=== PATIENT | female | born 1970 | race Caucasian/White ===

== ENCOUNTER 2022-07-15 10:48 | Emergency (ER) | payer OTHER, SELFPAY ==
--- NOTE | ~2022-07-15 | XR_ITS ---
EXAMINATION: XR chest 2V DATE: 07/15/2022 11:25 INDICATION: Cough TECHNIQUE: PA and lateral views of the chest are obtained. COMPARISON: None available FINDINGS: There are nodular opacities of the right lung. There are minimal airspace opacities of the right lung base. No pleural effusion or pneumothorax. The cardiomediastinal silhouette is normal. The re is moderate thoracic spondylosis. IMPRESSION: 1. Nodular opacities of the right lung which appeared reflect healed rib fractures. 2. Minimal right basilar airspace opacity, consistent with atelectasis versus pneumonia. Reviewed, dictated and finalized at location A. IMPRESSION: 1. Nodular opacities of the right lung which appeared reflect healed rib fractu res. 2. Minimal right basilar airspace opacity, consistent with atelectasis versus p neumonia.
[2022-07-15 10:56] VITALS: BP 130/76; PULSE 65; RESP 16; TEMP 36.3; O2SAT 100
--- NOTE | 2022-07-15 11:04 | ED.URI ---
HPI - URI/Sore Throat General Chief Complaint: Upper Respiratory Infection Stated Complaint: heavyness in chest, cough Time Seen by Provider: 07/15/22 11:08 Source: patient and RN notes reviewed Mode of arrival: ambulatory Limitations: no limitations History of Present Illness HPI Narrative: 52-year-old female with history of diabetes presents with concern for 8-day history of upper respiratory infection symptoms. Reports over the last 2 days she has began having worsening cough, chest congestion and heaviness. She reports history of being a heavy smoker, having pulmonary fibrosis, asthma, emphysema. She reports she has inhalers at home that she uses, she has not used an inhaler today. She reports an aversion to steroids because they make her blood sugar increase. She reports she has been treating her cold symptoms with Tylenol. MD elicited complaint: cough Related Data Home Medications Medication Instructions Recorded Confirmed estradiol 0.25 mg/0.25 gram (0.1 1 packet transdermal DAILY 07/15/22 07/15/22 %) transdermal gel packet (Divigel) fluoxetine 40 mg capsule 40 mg PO DAILY 07/15/22 07/15/22 insulin aspart U-100 100 unit/mL 20 unit subcut TID 07/15/22 07/15/22 subcutaneous cartridge (Novolog PenFill U-100 Insulin aspart) meloxicam 15 mg tablet 15 mg PO DAILY 07/15/22 07/15/22 thyroid (pork) 180 mg tablet 180 mg PO DAILY 07/15/22 07/15/22 ([place] Thyroid) umeclidinium 62.5 mcg-vilanterol 1 inh inhalation DAILY 07/15/22 07/15/22 25 mcg/actuation powdr for inhalation (Anoro Ellipta) zolpidem 10 mg tablet 10 mg PO HS 07/15/22 07/15/22 Allergies Allergy/AdvReac Type Severity Reaction Status Date / Time chlorhexidine Allergy Rash Verified 07/15/22 11:09 doxycycline Allergy Hives Verified 07/15/22 11:09 Penicillins Allergy Hives Verified 07/15/22 11:09 Review of Systems Review of Systems: CONSTITUTIONAL: Reports malaise, chills, sweats, or fever. EYES: Denies visual changes, redness, or discharge. ENT: Reports rhinorrhea, congestion, sinus pain, otalgia and sore throat. CARDIOVASCULAR: Denies chest pain, palpitations, or edema. RESPIRATORY: Reports cough, chest congestion Denies dyspnea. GASTROINTESTINAL: Denies abdominal pain, nausea, vomiting, diarrhea SKIN: Denies rash or itching. MUSCULOSKELETAL: Denies myalgia. NEUROLOGIC: Denies headache. All systems reviewed & are unremarkable except as noted in HPI and below PMFSH Comments At time of signature, agree with nursing past medical, surgical, social and family history. There is no relevant family history pertinent to the presenting complaint Exam Narrative: GENERAL: Well-appearing, well-nourished, and in no acute distress. HEAD: Normocephalic EYES: PERRLA, conjunctivae clear ENT: Nares clear, clear discharge, postnasal drainage. Mucous membranes moist. TM pearly buitrago with dull light reflex bilaterally; no tragal tenderness. Oropharynx not erythematous without lesions. Tonsils not enlarged and without exudate, no drooling, no hoarseness, no trismus, uvula midline. NECK: Supple. No lymphadenopathy CHEST: Bilateral lower lobe rhonchi noted, otherwise clear to auscultation, breath sounds equal. No wheezing, rhonchi, rales, or stridor. No respiratory distress, speaks in full sentences. HEART: Regular rate and rhythm. No murmur heard. SKIN: Warm, dry, no rash. NEURO: Alert and oriented x3. PSYCH: Normal mood and affect Course Course Emergency Course: Patient is aware of diagnosis, understands and agrees to treatment plan. Anticipatory guidance given. Patient agrees to follow-up as directed and is aware of reasons to seek care at the emergency department. Portions of this record may have been created with voice recognition software Level of Care: Express Care Visit Vital Signs Vital signs: Vital Signs Temperature 97.4 F L 07/15/22 10:56 Pulse Rate 65 07/15/22 10:56 Respiratory Rate 16 07/15/22 10:56 Blood Pressure 130/76
[2022-07-15 11:12] VITALS: BP 130/76; PULSE 65; RESP 16; TEMP 36.3; O2SAT 100
== END 2022-07-15 11:44 | disposition home or self-care (01) ==
PROVIDERS: Emergency Provider Nurse Practitioner
DX: J18.9 Pneumonia, unspecified organism (principal); E11.9 Type 2 diabetes mellitus without complications; E03.9 Hypothyroidism, unspecified; F32.A Depression, unspecified; J45.909 Unspecified asthma, uncomplicated; J43.9 Emphysema, unspecified; J84.10 Pulmonary fibrosis, unspecified
CPT/HCPCS: 71046; 99213; G0463